=== PATIENT | female | born 1990 | race African-American/Black ===

== ENCOUNTER → 2018-03-25 | Emergency (ER) | payer OTHER ==
[~2018-03-25] MED LIST: CALCIUM CHLORIDE 1 GM/10 ML *DISP.SYRIN ONE; EPINEPHrine 1:10,000 (P-F SYR) 1 MG/10 ML DISP.SYRIN ONE; SODIUM BICARBONATE 8.4% - 50 ML ONE
[2018-03-25 05:43] VITALS: BP 0/0; PULSE 0; BMI 25.4
--- NOTE | 2018-03-25 05:51 | PDOC ---
History of Present Illness - General Chief Complaint: Cardiac Arrest Stated Complaint: CARDIAC ARREST Time Seen by Provider: 03/25/18 05:43 - History of Present Illness Initial Comments: 03/25/18 05:51 Patient is a 27 year old female with profound mental retardation, congenital hydrocephalus, obstructive hydrocephalus, congenital quadriplegia, profound intellectual disabilities presents in cardiac arrest. As per EMS, patient found at her facility unresponsive by staff @ 4:40 a.m. Facility started CPR and called 911. EMS reports patient has blood at her mouth. Fingerstick 106. EMS administered Epinephrine x4, Ca, NaHCO3 + 40 minutes CPR Past History - Past Medical History Allergies/Adverse Reactions: Allergies Allergy/AdvReac Type Severity Reaction Status Date / Time No Known Allergies Allergy Verified 03/25/18 05:39 - Suicide/Smoking/Psychosocial Hx Smoking History: Never smoked Review of Systems - Review of Systems Able to Perform ROS?: No (cardiac arrest) *Physical Exam - Vital Signs Last Vital Signs Temp Pulse Resp BP Pulse Ox 0 L 0 L 0/0 03/25/18 05:40 03/25/18 05:40 03/25/18 05:40 - Physical Exam Comments: 03/25/18 05:54 General: intubated, no spontaneous movement, contracted extremities HEENT: atraumatic, fixed, dilated pupils CV: no spontaneous heart sounds Respiratory: no spontaneous lung sounds Medical Decision Making - Medical Decision Making 03/25/18 05:44 27 year old female presents in cardiac arrest. Found down 1 hour prior to presentation in ED; 40 minutes of CPR administered No cardiac activity appreciated on U/S. pronounced at 5:38 Case d/w Rachael Craig of [facility] -informed of . Patient's next of kin: Father: Mr. Jose Angel Estrada Mother: Nani Estrada Metal Mixer doctor @ [facility] Services: Dr. Walter 03/25/18 05:52 Left message for patient's mother and father 03/25/18 05:[address] Walter 03/25/18 06:03 [facility] [employer] Yimi Raphael, contacted by attending physician, Dr. Cirilo Wang. Case #[id number] 03/25/18 06:39 Parents informed of . *DC/Admit/Observation/Transfer Diagnosis at time of Disposition: Cardiac arrest - Discharge Dispostion Disposition: - Referrals - Patient Instructions - Post Discharge Activity
--- NOTE | 2018-03-25 05:53 | PDOC ---
Attending Attestation - Resident Resident Name: Gemma Coulter - ED Attending Attestation I have performed the following: I have examined & evaluated the patient, The case was reviewed & discussed with the resident, I agree w/resident's findings & plan, Exceptions are as noted <Cirilo Wang - Last Filed: 03/25/18 05:52> - HPI HPI: 03/25/18 05:55 The patient is a 27 year old female, with a significant past medical history of mental retardation, moderate hydrocephalus, obstructive hydrocephalus, congenital spastic quadriplegic, osteoporosis, cerebral atrophy, infantile cerebral palsy, and epilepsy, who presents to the emergency department via [facility] with, cardiac arrest. As per EMS, the patient was found at her facility in bed unresponsive by staff. They report she was unresponsive since 4:40AM and the facility attempted CPR and called 911. Upon the arrival of EMS, they report there was blood in her mouth. The patient has been on EMSs monitors for 40 minutes receiving 4 rounds of Epinephrine, 1 round of calcium, and 1 round of of sodium bicarbonate, fluids, and the [place] was intact upon arrival to the ED at 5:37 AM. They report that her blood glucose level was 106 in the field. While in the ED, a cardiac bedside ultrasound was performed and no cardiac activity was noted. The patient was declared at 5:38 AM. Allergies: NKA - Physicial Exam PE: 03/25/18 05:55 GENERAL: Patient intubated and bagged by BVM. HEENT: Atraumatic. Pupils fixed and dilated. CARDIOVASCULAR: No spontaneous heart sounds. PULMONARY: No spontaneous lung sounds. ABDOMEN: Soft. EXTREMITIES: Contracted x 4 extremities. NEUROLOGICAL: No spontaneous movements. - Medical Decision Making 03/25/18 05:56 Call placed to [place] [employer], case discussed with Yimi Raphael. <Ana Valencia - Last Filed: 03/25/18 06:17> Attestations - Attestations 03/25/18 05:59 Documentation prepared by Ana Valencia, acting as medical records coder for Cirilo Wang DO. <Ana Valencia - Last Filed: 03/25/18 06:17>
== END | disposition expired ==
LOC: JER 05:32
DX: I46.9 Cardiac arrest, cause unspecified (principal); F73 Profound intellectual disabilities; Q03.9 Congenital hydrocephalus, unspecified; G91.1 Obstructive hydrocephalus; G80.0 Spastic quadriplegic cerebral palsy; M81.0 Age-related osteoporosis without current pathological fracture; G40.909 Epilepsy, unspecified, not intractable, without status epilepticus; G80.8 Other cerebral palsy
CPT/HCPCS: 99285-25